=== PATIENT | female | born 1955 ===

== ENCOUNTER 2021-01-27 16:07 | Outpatient (REF) | payer OTHER, SELFPAY ==
--- NOTE | ~2021-01-27 | MM_ITS ---
EXAMINATION: MM SCREENING DIGITAL BREAST TOMOSYNTHESIS, BILATERAL CLINICAL INFORMATION: Screening. Asymptomatic. The lifetime risk of breast cancer based on the Tyrer-Cuzick Model is 5%. COMPARISON: Outside mammography 03/01/2019, 12/05/2017 ([facility]). TECHNIQUE: Digital breast tomosynthesis is performed in both the craniocaudal and mediolateral oblique views along with computer-aided detection (CAD). Synthesized 2D images are generated from the tomosynthesis. FINDINGS: There are scattered areas of fibroglandular density (ACR BI-RADS breast composition Category b). Parenchymal pattern is similar to outside studies. There is no developing density or interval mass or architectural abnormality. No abnormal calcifications. The axilla and skin contours are unremarkable. MM/MM tomosynthesis screening BI IMPRESSION: No mammographic evidence of malignancy. ASSESSMENT: BI-RADS 1: Negative RECOMMENDATION: Routine annual mammography screening. This patient's information was entered into a reminder system with a target due date for their next mammogram.
== END 2021-01-27 16:08 | disposition home or self-care (01) ==
LOC: HO.MAMMO 16:07
PROVIDERS: PCP Internal Medicine; Visit Provider Internal Medicine
DX: Z12.31 Encounter for screening mammogram for malignant neoplasm of breast (principal)
CPT/HCPCS: 77063; 77067

== ENCOUNTER 2022-01-29 16:11 | Outpatient (REF) | payer OTHER, SELFPAY ==
--- NOTE | ~2022-01-29 | MM_ITS ---
EXAMINATION: MM SCREENING DIGITAL BREAST TOMOSYNTHESIS, BILATERAL CLINICAL INFORMATION: Screening. Asymptomatic. The lifetime risk of breast cancer based on the Tyrer-Cuzick Model is 9%. COMPARISON: Mammography: 01/27/2021; outside mammography 03/01/2019, 12/05/2017 ([facility]) TECHNIQUE: Digital breast tomosynthesis is performed in both the craniocaudal and mediolateral oblique views along with computer-aided detection (CAD). Synthesized 2D images are generated from the tomosynthesis. FINDINGS: There are scattered areas of fibroglandular density (ACR BI-RADS breast composition Category b). There are no significant masses, abnormal calcifications, or other abnormalities. Parenchymal pattern is similar to prior studies. There is no developing density or architectural abnormality. The axilla and skin contours are unremarkable. No significant changes. MM/MM tomosynthesis screening BI IMPRESSION: No mammographic evidence of malignancy. ASSESSMENT: BI-RADS 1: Negative RECOMMENDATION: Routine annual mammography screening. This patient's information was entered into a reminder system with a target due date for their next mammogram.
== END 2022-01-29 16:12 | disposition home or self-care (01) ==
LOC: HO.MAMMO 16:11
PROVIDERS: Visit Provider Internal Medicine
DX: Z12.31 Encounter for screening mammogram for malignant neoplasm of breast (principal)
CPT/HCPCS: 77063; 77067

== ENCOUNTER → 2023-03-09 12:08 | Outpatient (REF) | payer OTHER, SELFPAY ==
--- NOTE | ~2023-03-09 | XR_ITS ---
EXAMINATION: XR CHEST CLINICAL INFORMATION: M35.00 - Sjogren syndrome, unspecified COMPARISON: None available. TECHNIQUE: 2 views of the chest were obtained. FINDINGS: There is no airspace consolidation, groundglass opacity, pleural reaction, or effusion. Heart size normal. No vascular congestion. The hilar and mediastinal contours are unremarkable. There are mild multilevel degenerative changes thoracic spine. XR/XR chest 2V IMPRESSION: Unremarkable examination.
--- NOTE | 2023-03-09 12:55 | CA_ITS ---
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 The calculated ejection fraction is 59% by biplane method. - The basal inferior segment is hypokinetic. - The left atrium is severely dilated. - There is mild aortic valve regurgitation. - There is moderate dilatation of the ascending aorta measuring 4.50 cm. - Moderate plaque is seen in the ascending aorta. Findings Left Ventricle Normal left ventricular cavity size. There is mildly increased left ventricular wall thickness. The left ventricular systolic function is normal. The calculated ejection fraction is 59% by biplane method. E/E prime ratio is between 8 and 15 consistent with indeterminate filling pressures. Evidence suggests grade I (mild) diastolic dysfunction. Wall Motion Rest Echo Findings The basal inferior segment is hypokinetic. Right Ventricle Normal right ventricular cavity size and systolic function. Atria The left atrium is severely dilated. The right atrium is normal in size. Aortic Valve There is a normal trileaflet aortic valve. There is no aortic valve stenosis. There is mild aortic valve regurgitation. Mitral Valve The mitral valve appears normal. There is mild mitral annular calcification. There is mild mitral valve regurgitation. There is no mitral valve stenosis. Pulmonic Valve The pulmonic valve is likely normal. Tricuspid Valve There is trace tricuspid valve regurgitation. There is no evidence of pulmonary hypertension. Great Vessels There is moderate dilatation of the ascending aorta measuring 4.50 cm. Moderate plaque is seen in the ascending aorta. Venous The inferior vena cava is normal in size and collapses greater than 50% with inspiration. Pericardium/Pleural There is no evidence of pericardial effusion. Prior Study Comparison Changes noted compared to prior study dated: 09/21/2005. See comments on ascending aorta. Wall motion abnormality mentioned before. Measurements 2D Linear Measurements IVSd: 1.24 0.6-0.9/0.6-1.0 cm LVIDd: 5.69 3.9-5.3/4.2-5.9 cm LVIDd Index: 3.27 2.4-3.2/2.2-3.1 cm/m2 LVIDs: 3.57 2.0-3.6 cm LVPWd: 0.80 0.7-1.1 cm LA Diam: 4.80 2.7-3.8/3.0-4.0 cm LAIDs Index: 2.76 1.5-2.3 cm/m2 LV Mass: 288.96 67-162/88-224 g LV Mass Index: 166.07 43-95/49-115 g/m2 LVOT Diam: 2.30 3.0+(-)1.3 cm 2D Systolic Function EF 4C: 58.90 >55% EF 2C: 58.00 >55% EF BiP: 58.80 >55% Mitral Valve MV Pk E: 0.54 MV PK A: 0.72 MV Decel Time: 281.00 E/A: 0.70 E'Lateral: 6.85 E'Medial: 3.59 E/E' Med: 14.90 E/E' Lat: 7.80 PHT: 82.00 MVA PHT: 2.68 Decel Garden: 1.90 Aortic Valve AoV Pk Alonzo: 1.77 AoV Mn Alonzo: 1.12 AoV VTI: 0.41 AoV Pk Grad: 13.00 Aov Mn Grad: 6.00 CITLALLI Cont.VTI: 2.68 AI Pk Alonzo: 4.07 AI Garden: 2.24 LVOT LVOT Pk Alonzo: 1.11 LVOT Mn Alonzo: 0.68 LVOT VTI: 0.26 LVOT Pk Grad: 5.00 LVOT Mn Grad: 2.00 LVOT Diam: 2.30 LVOT Area: 4.15 Diastolic Function MV Pk E: 0.54 MV Pk A: 0.72 E/A: 0.70 E'Medial: 3.59 E/E' Med: 14.90 E' Laterial: 6.85 E/E' Lat: 7.80 Right Ventricle TAPSE (mm): 23.40 TVS' Alonzo: 13.80 Tricuspid Valve TR Pk Alonzo: 2.76 TR Pk Grad: 30.00 RA Press: 3.00 RVSP: 33.00 Great Vessels Aorta Sinus of Valsalva: 3.63 2.0-3.[address] Ridge: 2.79 1.7-3.4 cm Ao Asc: 4.50 2.1-3.4 cm Updated in Other Vendor System with Status of Final Cory Mariscal MD electronically signed on 03/11/2023 11:33:12 AM with status of Final
== END ==
LOC: HO.CARD 12:08
PROVIDERS: PCP Internal Medicine; Visit Provider Student in an Organized Health Care Education/Training Program
DX: R01.1 Cardiac murmur, unspecified (principal); M35.00 Sjogren syndrome, unspecified
CPT/HCPCS: 71046; 93306

== ENCOUNTER 2023-06-02 14:16 | Outpatient (AMB) | payer OTHER, SELFPAY ==
[2023-06-02 14:17] VITALS: BP 126/76; PULSE 73; BMI 34.9
--- NOTE | 2023-06-02 14:17 | MHC.OFFVIS ---
Intake Vital Signs 06/02/23 14:17 Height 5 ft Weight 178 lb 9.191 oz BMI 34.9 BP 126/76 Blood Pressure Location Lt brachial Position Sitting Pulse 73 Intake Visit Reasons: MAGNETIZER/Miguel A/Thoracic aortic ectasia Intake Note: New patient Dr Grady dx thoracic aortic ectasia c/o tachycardia but feeling ok Oncology Coordinator Required: No Physical Chemistry Professor: Physical Chemistry Professor Present Accompanied by: Spouse Allergies acetaminophen [From Percocet] Adverse Reaction (Verified 08/17/22 13:44) Hallucinations oxycodone [From Percocet] Adverse Reaction (Verified 08/17/22 13:44) Hallucinations Medication List - Last Reconciled 06/02/23 by Thierno Navarro MD acetaminophen ER (Tylenol Arthritis Pain) 650 mg PO BEDTIME albuterol sulfate 90 mcg/actuation (ProAir HFA) 90 mcg inhalation NEEDED hydroxychloroquine 200 mg PO BID levothyroxine 100 mcg PO DAILY losartan 50 mg PO DAILY metoprolol succinate ER 200 mg PO DAILY omeprazole 20 mg PO DAILY PRN pilocarpine HCl 5 mg PO TID pravastatin 20 mg PO BEDTIME HPI HPI Comments History of Present Illness Details Thank you for referring Nicky in cardiology consultation today for recently noted ascending aortic aneurysm at 4.5 cm. The echocardiogram was performed because of a murmur noted on routine exam and subsequently this shows mild aortic regurgitation moderate ascending aortic aneurysm at 4.5 cm. Patient was not aware of it but very anxious about it. Echocardiogram also showed possible inferior wall motion abnormality with normal LV systolic function. Patient referred here for further evaluation. She has prior history of hypertension for many years, palpitations, unclear etiology, Sjogren's syndrome, hyperlipidemia. Patient does not get any symptoms exertional chest pain or shortness of breath. She denies any prolonged palpitations since her metoprolol was increased to 200 mg daily, she has symptoms about once or twice a year where she briefly feels heart racing. Never been diagnosed with atrial fibrillation the past. She has no symptoms of orthopnea, PND, leg edema. She has no lightheadedness, syncope. PENDING SALE TO [facility] Medical History Alopecia areata Anemia Asthma Dermatitis Eczema High cholesterol Hypertension Hypothyroid Microhematuria Sleep apnea Surgical History H/O varicose vein stripping LAP-BAND surgery status Family History Mother Diabetes Paternal Aunt Diabetes Breast cancer Uterine cancer Father High blood pressure Social History Household Members: [facility] Are you a primary child care sitter to a significant other at home: No Do you presently have visiting nurse or other home services: No Alcohol intake: current Alcohol intake frequency: 0-2 drinks per day Alcohol type: wine Patient Tobacco Use Status: Never used Tobacco service: No Current occupational status: retired 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 Review of Systems Const Denies chills, Denies daytime sleepiness, Denies fatigue, Denies fever(s), Denies frequent falls, Denies poor appetite, Denies snoring, Denies stops breathing during sleep, Denies weakness, Denies weight gain and Denies weight loss Eyes Denies loss of vision ENT Denies dizziness and Denies hearing loss Card Denies chest pain, Denies claudication, Denies leg edema, Denies lightheadedness, Denies palpitations, Denies dyspnea, Denies dyspnea on exertion and Denies orthopnea Resp Denies cough, Denies excessive phlegm production, Denies dyspnea, Denies dyspnea on exertion, Denies snoring and Denies wheezing GI Denies abdominal pain, Denies hematochezia, Denies change in bowel habits, Denies nausea and Denies vomiting Denies urinary frequency and Denies dysuria Musc Denies arthralgias, Denies muscle weakness, Denies numbness and Denies other (frequent falls) Skin/Breast Denies nail changes and Denies rash Neuro Denies Abnormal speech present, Denies dizziness, Denies frequent falls, Denies loss of vision, Denies memory loss, Denies numbness and Denies weakness Psych Denies depression and Denies memory loss Endo Denies fatigue and Denies palpitations Aaron/Lymph Reports easy bruising and Reports other (anemia) Aller/Immun Denies wheezing Physical Exam Vital Signs: Last Vital Signs Pulse 73 06/02/23 14:17 BP 126/76 06/02/23 14:17 BMI result Body Mass Index 34.9 Const General: cooperative, comfortable, no acute distress, alert and awake Nutritional Appearance: obese Orientation/consciousness: patient oriented x3 Limitations: no limitations HEENT Head: Yes normocephalic and Yes atraumatic Neck Neck: Yes trachea midline, Yes supple and Yes no JVD Resp Effort & Inspection: normal respiratory effort Auscultation: clear to auscultation bilaterally Cardio Jugular venous distension: no JVD Palpation: normal PMI Rate: regular rate Rhythm: regular rhythm Heart sounds: S1 normal heart sound present, S2 normal heart sound present, no click, no gallops and Murmur heart sound present systolic early GI Auscultation: normal bowel sounds Skin General skin exam: no rashes or lesions noted Neuro General: patient oriented x3 and no focal motor deficits Speech: No Abnormal speech present Extrem General: Yes no clubbing, cyanosis or edema Office Procedures EKG Details: EKG shows normal sinus rhythm nonspecific ST changes [id number], Complete Assessment & Plan Assessment & Plan (1) Abnormal echocardiogram: Code(s): R93.1 - Abnormal findings on diagnostic imaging of heart and coronary circulation Plan: Patient is abnormal echocardiogram suggestive ascending aortic atherosclerosis as well as possible inferior wall motion abnormality. She has multiple risk factors for obstructive coronary artery disease. Given the wall motion of did echocardiogram prognostically significant CAD needs to be ruled out and she does not have any clear exertional symptoms but could have silent myocardial ischemia. This will need to be treated aggressively. Suggest exercise myocardial perfusion imaging in near future further treatment based on the findings of the stress test. (2) Ascending aorta dilatation: Code(s): I77.810 - Thoracic aortic ectasia Plan: Moderate ascending aortic aneurysm without any clinical history or family history. Most likely atherosclerotic in nature. She has multiple risk factors for the same. Continue aggressive blood pressure control. Blood pressure is generally well control, continue current metoprolol as well as losartan therapy. Advised to monitor blood pressure at home maintain a log. She is on low intensity statin therapy and have recommended to follow-up lipid panel near future most likely switch her to high-intensity statin therapy based on her baseline LDL level on current pravastatin therapy. Management of ascending aortic aneurysm was discussed. Will follow-up limited echocardiogram 6 months time. If that is rapid increase will refer to Cardiothoracic surgery for repair of ascending aortic aneurysm otherwise follow-up annually after that the size of 5.5 cm. Risk of acute aortic syndrome was discussed. Advised to avoid sudden isometric physical exercise. Will follow up in the clinic in 6 months time, sooner p.r.n.. Thank you for allowing me to partake in her care Orders: Orders CA echo limited 4 Months I42.9 - Cardiomyopathy, unspecified, I77.810 - Thoracic aortic ectasia CA stress test Today R93.1 - Abnormal findings on diagnostic imaging of heart and coronary circulation NM cardiolite stress test 2 Weeks R07.9 - Chest pain, unspecified, R93.1 - Abnormal findings on diagnostic imaging of heart and coronary circulation Lipid Panel Today I77.810 - Thoracic aortic ectasia Medications: Changed From pilocarpine HCl use as needed for dryness 5 mg PO TID 90 tabs 0RF To pilocarpine HCl use as needed for dryness 5 mg PO TID Coding Level of Care Code New Pt Level 4 (33820) Diagnoses Abnormal echocardiogram R93.1 Ascending aorta dilatation I77.810 CPT Codes EKG - CPT: 49883-[id number], Complete ([id number])
== END 2023-06-02 14:43 | disposition home or self-care (01) ==
PROVIDERS: PCP Internal Medicine; Referring Provider Student in an Organized Health Care Education/Training Program; Visit Provider Internal Medicine Cardiovascular Disease
DX: R93.1 Abnormal findings on diagnostic imaging of heart and coronary circulation (principal); I77.810 Thoracic aortic ectasia
CPT/HCPCS: 93010; 99204

== ENCOUNTER → 2023-06-02 14:16 | Outpatient (BNVA) | payer OTHER, SELFPAY | PROVIDERS: PCP Internal Medicine; Referring Provider Student in an Organized Health Care Education/Training Program; Visit Provider Internal Medicine Cardiovascular Disease | DX: I42.9 Cardiomyopathy, unspecified (principal); I77.810 Thoracic aortic ectasia; R07.9 Chest pain, unspecified; R93.1 Abnormal findings on diagnostic imaging of heart and coronary circulation | CPT/HCPCS: 93005 ==

== ENCOUNTER 2023-06-20 12:02 | Outpatient (REF) | payer OTHER, SELFPAY ==
[2023-06-20 12:42] LABS: MANUAL DIFF FLAG NO
[2023-06-20 13:10] LABS: Basophils Absolute Auto 0.1 X10*3/uL (0.0-0.2); Basophils Percent Auto 2.4 % (0-2); Eosinophils Absolute Auto 0.2 X10*3/uL (0.0-0.4); Eosinophils Percent Auto 6.5 % (0-4); Hematocrit 34.8 % (37.0-47.0); Hemoglobin 11.6 g/dl (12.0-16.0); Lymphocytes Absolute Auto 0.6 X10*3/uL (1.2-4.9); Mean Corpuscular HGB Conc 33.3 g/dl (31.0-35.0); Mean Corpuscular Hemoglobin 32.5 pg (27.0-33.0); Mean Corpuscular Volume 97.5 fL (80.0-98.0); Mean Platelet Volume 10.5 fL (9.4-12.3); Monocytes Absolute Auto 0.4 X10*3/uL (0.1-1.2); Monocytes Percent Auto 12.5 % (2-11); Neutrophils Percent Auto 59.6 % (45-73); Platelet Count 249 X10*3/uL (160-400); Red Blood Count 3.57 X10*6/uL (4.20-5.50); Red Cell Distribution Width 12.7 % (11.0-16.0); White Blood Count 3.4 X10*3/uL (4.8-10.8)
[2023-06-20 13:38] LABS: C Reactive Protein 0.13 mg/dL (< or = 0.50); Uric Acid 6.5 mg/dL (2.4-5.7)
[2023-06-20 14:06] LABS: HBc Num1 0.12 S/CO (0.00-0.79); HBsAGNum1 0.33 S/CO (0.00-0.99); Hepatitis A Antibody IgM 0.26 Index (0-0.79); Hepatitis B Core Antibody Nonreactive (Nonreactive); Hepatitis B Surface Antigen Negative (Negative); ~HepC Num1 0.17 S/CO (0.00-0.79); ~Hepatitis A Antibody IgM Nonreactive (Nonreactive); ~Hepatitis B Surface Antibody REACTIVE (Nonreactive); ~Hepatitis C Antibody Nonreactive (Nonreactive)
[2023-06-20 15:10] LABS: Erythrocyte Sedimentation Rate 34 MM/HR (0-20)
[2023-06-20 15:12] LABS: Appearance Urine Clear; Color Urine Yellow; Glucose Urine UA Negative (Negative); Leukocyte Esterase Urine Small (1+) (Negative); Nitrite Urine Negative (Negative); UMIC TRIGGER UA YES; Urine Blood Negative (Negative); Urine Ketones Negative (Negative); Urine Protein Negative (Neg-Trace)
[2023-06-20 15:19] LABS: Bacteria Urine None Seen (None Seen); Hyaline Casts Urine 0-2 /LPF (0-2); RBC Urine 0-2 /HPF (0-2); Squamous Epithelial Cell Urine 0-2 /HPF (0-2); WBC Urine 0-5 /HPF (0-5)
[2023-06-20 15:37] LABS: Creatinine Urine 71.14 mg/dL; Total Protein Urine Random < 7 mg/dL (<12)
[2023-06-21 13:13] LABS: Complement C3 122 mg/dL (83-193)
[2023-06-22 23:19] LABS: Anti DNA DS Antibody 2 IU/mL; SM/Ribonucleoprotein Ab <1.0 NEG AI (<1.0 NEG); Smith Protein <1.0 NEG AI (<1.0 NEG)
[2023-06-23 15:48] LABS: Anti Nuclear Antibody Screen POSITIVE (NEGATIVE)
[2023-06-29 11:35] LABS: Cryoglobulin, Qual NONE DETECTED
== END 2023-06-20 12:03 | disposition home or self-care (01) ==
LOC: HO.10HDL 12:02
PROVIDERS: Visit Provider Student in an Organized Health Care Education/Training Program
DX: Z11.59 Encounter for screening for other viral diseases (principal); M35.00 Sjogren syndrome, unspecified; Z72.89 Other problems related to lifestyle
CPT/HCPCS: 36415; 81001; 82550; 82595; 84156; 84550; 85025; 85652; 86038; 86039; 86140; 86160; 86225; 86235; 86704; 86706; 86709; 86803; 87340

== ENCOUNTER 2023-06-24 15:20 | Outpatient (AMB) | payer OTHER, SELFPAY ==
--- NOTE | 2023-06-24 15:23 | A.OFFVIS_ITS ---
Intake Vital Signs 06/24/23 15:24 Height 5 ft Weight 179 lb 10.828 oz BMI 35.1 BP 144/86 H Blood Pressure Location Rt brachial Position Sitting Pulse 66 Pulse Source Pulse Oximeter Temp 97.8 F Pulse Oximetry (%) 97 Intake Visit Reasons: FU Sjogren & labs Intake Note: Pt seen today for Sjogren's follow up and test results. Mess Attendant Required: No Accompanied by: Significant Other Allergies acetaminophen [From Percocet] Adverse Reaction (Verified 06/24/23 15:33) Hallucinations oxycodone [From Percocet] Adverse Reaction (Verified 06/24/23 15:33) Hallucinations Medication List - Last Reconciled 06/24/23 by Rochelle Grady MD acetaminophen ER (Tylenol Arthritis Pain) 650 mg PO BEDTIME albuterol sulfate 90 mcg/actuation (ProAir HFA) 90 mcg inhalation NEEDED levothyroxine 100 mcg PO DAILY losartan 50 mg PO DAILY metoprolol succinate ER 200 mg PO DAILY omeprazole 20 mg PO DAILY PRN pravastatin 20 mg PO BEDTIME HPI HPI Comments History of Present Illness Details 68-year-old female with Sjogren's returns for follow-up. Patient stated that she recently went for an eye procedure. She was told that she had blood in the back of her eye she had a surgery procedure. She mentioned that she took hydroxychloroquine for a few months after I saw her initially last year. Then she was out of it for many months, she restarted it about a week ago. Stated that when she takes hydroxychloroquine the joint pain especially in her knees and shoulders improved. She continues to get intermittent dry eyes, she uses artificial tears 2 to 3 times a week. She was evaluated by Cardiology and a stress test was ordered Initial history: This is a 67-year-old female with a past medical history of hypothyroidism, alopecia areata, hypertension, dyslipidemia, mild asthma who presents for evaluation of Sjogren's. Patient has had dry eyes and dry mouth for 3-4 years. Dry mouth is worse at night, she drinks plenty of water. She denies any history of frequent dental infections. She feels the food is dry when she eats and she has to drink plenty of water but food never got stuck in her throat or chest. She also has been having dry eyes for years. She has skin dryness too. In [place] she saw a reproduction artist who diagnosed her with Sjogren's and was started on hydroxychloroquine which helped her bilateral knee pain. She took it for 3 months, she is not taking it currently. She has bilateral shoulder pain especially when she sleeps on her sides. She has intermittent shortness of breath, usually when she is resting. Patient has 15 steps of stairs at home and she can climb the stairs with no shortness of breath. Can walk on level ground indefinitely. Has bilateral knee pain with walking improved with Tylenol. [facility] Medical History (Updated 06/24/23 @ 16:14 by Rochelle Grady MD) Alopecia areata Anemia Asthma Dermatitis Eczema High cholesterol Hypertension Hypothyroid Microhematuria Sleep apnea Surgical History H/O varicose vein stripping LAP-BAND surgery status Family History Mother Diabetes Paternal Aunt Diabetes Breast cancer Uterine cancer Father High blood pressure Social History Household Members: [facility] Are you a primary ocular care technician to a significant other at home: No Do you presently have visiting nurse or other home services: No Alcohol intake: current Alcohol intake frequency: 0-2 drinks per day Alcohol type: wine Patient Tobacco Use Status: Never used Tobacco service: No Current occupational status: retired 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 Review of Systems Const All systems reviewed & are unremarkable except as noted in HPI and below Denies weight loss Eyes Reports dry eyes ENT Reports dry mouth Physical Exam Vital Signs: Last Vital Signs Temp 97.8 F 06/24/23 15:24 Pulse 66 06/24/23 15:24 BP 144/86 H 06/24/23 15:24 Pulse Ox 97 06/24/23 15:24 BMI result Body Mass Index 35.1 Const General: cooperative, healthy appearing, comfortable and no acute distress Nutritional Appearance: average body habitus and well nourished Orientation/consciousness: patient oriented x3 Limitations: no limitations HEENT Mouth: moist mucous membranes Resp Effort & Inspection: normal respiratory effort and able to speak in complete sentences Auscultation: clear to auscultation bilaterally Cardio Rate: regular rate Rhythm: regular rhythm Heart sounds: S1 normal heart sound present, S2 normal heart sound present and Murmur heart sound present systolic (aortic area) GI Inspection: No distended Palpation (GI): Soft to palpation and nontender Back/Spine/Pelvis Other: Mildly kyphotic Neuro General: patient oriented x3 Extrem Other: No synovitis, normal range of motion of her hands shoulders and elbows Normal nailfold capillaroscopy Results Reviewed Results Reviewed: Labs from 01/2022?in [place] CARLY positive 1-160 nuclear granular pattern? Anti TPO 34.4 (< 34.0) Anti Ro 52 2876? Anti Ro 60 2749 Anti SS B above 259 Ibrahim/TUBULAR PRODUCTS FABRICATOR/Scl 70/Brittnee-1/centromere/Ribosomal P/dsDNA all negative Rheumatoid factor 246 (<14) C4/C3 normal Sed rate 51 Assessment & Plan Assessment & Plan (1) Sjogren's syndrome: Code(s): M35.00 - Sjogren syndrome, unspecified Qualifiers: Sjogren organ or system involvement: keratoconjunctivitis Qualified Code(s): M35.01 - Sjogren syndrome with keratoconjunctivitis Plan: This is a 67-year-old female with a past medical history of hypothyroidism, hypertension, dyslipidemia, alopecia areata who presents for evaluation of Sjogren's syndrome. She was recently diagnosed by reproduction artist in [facility]. She has Sjogren syndrome (CARLY 1-160, anti Ro 52 & anti Ro 60 positive in high titers, positive RF) dry eyes and dry mouth, arthralgias. Her bilateral knee arthralgias improved with hydroxychloroquine. Will DC hydroxychloroquine as patient stated that she had a recent eye procedure. Details not available to me. Hydroxychloroquine might be relatively contraindicated if patient has macular degeneration. Advised patient to call her combatant swimmer to send us records. Continue management approaches for sicca symptoms including: -continue Biotene mouthwash or Biotene spray for dry mouth -s continue to use artificial tears as needed for dry eyes -consider a humidifier If dry eyes do not improve then consult with an combatant swimmer PFTs were done to screen for ILD and it was unremarkable (2) Long-term use of hydroxychloroquine: Code(s): Z79.899 - Other chcf (current) drug therapy Plan: As mentioned above. Discontinue hydroxychloroquine. Patient will reach out to her combatant swimmer and send us records (3) Murmur, cardiac: Code(s): R01.1 - Cardiac murmur, unspecified Plan: Murmur was hold on heart auscultation has visit. 2D echo showed mild basal hypokinesis and a small ascending aortic aneurysm. Patient was evaluated by Cardiology and scheduled for a stress test (4) Osteopenia: Code(s): M85.80 - Other specified disorders of bone density and structure, unspecified site Qualifiers: Osteopenia location: multiple sites Qualified Code(s): M85.89 - Other specified disorders of bone density and structure, multiple sites Plan: FRAX 2022 showed osteopenia with a low FRAX score. No need for antiresorptive therapy. Can repeat in 2-3 years Plan I spent 29 minutes reviewing patient's chart, evaluating patient, counseling patient and documenting in the chart Coding Level of Care Code Est Pt Level 4 (29897) Diagnoses Sjogren's syndrome M35.01 Sjogren organ or system involvement: keratoconjunctivitis Long-term use of hydroxychloroquine Z79.899 Murmur, cardiac R01.1 Osteopenia M85.89 Osteopenia location: multiple sites
[2023-06-24 15:24] VITALS: BP 144/86; PULSE 66; TEMP 36.6; O2SAT 97; BMI 35.1
== END 2023-06-24 16:07 | disposition home or self-care (01) ==
PROVIDERS: PCP Internal Medicine; Visit Provider Student in an Organized Health Care Education/Training Program
DX: M35.01 Sjogren syndrome with keratoconjunctivitis (principal); Z79.899 Other long term (current) drug therapy; R01.1 Cardiac murmur, unspecified; M85.89 Other specified disorders of bone density and structure, multiple sites
CPT/HCPCS: 99214

== ENCOUNTER → 2023-06-24 15:20 | Outpatient (BNVA) | payer OTHER, SELFPAY | PROVIDERS: PCP Internal Medicine; Visit Provider Student in an Organized Health Care Education/Training Program ==

== ENCOUNTER → 2023-11-09 07:48 | Outpatient (REF) | payer MEDICARE, SELFPAY ==
--- NOTE | ~2023-11-09 | NM_ITS ---
Exercise Myocardial perfusion study Indication: Chest pain to evaluate for myocardial ischemia Technique: The patient was brought in for an exercise perfusion study on 11/09/2023. Patient performed exercise as per Spencer protocol and was injected 25 mCi of sestamibi was given intravenously one target HR was achieved. Images were obtained using the SPECT gamma camera interlaced with the gating device. Images were obtained in supine position. Resting perfusion study was performed on 11/14/2023. Patient was administered 25 mCi of sestamibi intravenously at rest. Images were then obtained in supine position. Images obtained with and without CT attenuation. Total DLP 111 mGy-cm Images were processed with the software and compared side to side in short axis, horizontal long axis and vertical long axis views. Findings: The stress perfusion study showed non attenuated images show mildly reduced uptake in the distal anterior and apical wall of the LV myocardium with mildly reduced uptake in the basal lateral wall of the LV myocardium. Attenuation corrected images also show mild thinning and reduced uptake in the distal anterior and apical wall of the LV myocardium.. The gated study shows normal LV systolic function with calculated LVEF of 53%. LV cavity is mildly dilated in size. The gated study shows normal systolic wall thickening and contraction of all segments. There is no transient ischemic dilation. Resting study shows improved uptake in the distal anterior and apical rowley of LV myocardium both attenuated as well as non attenuated images. Gating at rest reveals normal systolic wall motion with ejection fraction at 57%. The findings are consistent with mild intensity reversible defect in the distal anterior and apical wall of the LV myocardium suggestive of ischemia in mid to distal LAD territory. NM/NM cardiolite stress test Impression: 1. Mild intensity ischemia in mid to distal LAD territory 2. Gated LVEF is 53% with stress and 57% with rest 3. Transient ischemic dilatation not present Stress EKG is not suggestive of ischemia
--- NOTE | 2023-11-09 07:50 | CA_ITS ---
Acquisition Time: 2023-11-09 08:07:55 Total Exercise Time: 00:05:48 Test Indications: ABN ECHO Medications: ALBUTEROL LEVOTHYROXINE LOSARTAN METOPROLOL PILOCAROINE PRAVASTATIN Protocol: SPENCER Max HR: 126 BPM 82% of Pred: 152 BPM Max BP: 166/080 mmHG Max Work Load: 7.8 METS Exercise stress test exercise 5 min 48 sec of Spencer protocol 82% MPHR (stage 2, 3 manually increased due to coming back on treadmil) with 30 sec of marching in place to maintain heart rate due to fatigue, with moderate SOB, no chest discomfort, with isolated PVCs, PACs, lauren of SVT, with normotensive response to exercise, with T wave inversion in aVL and V2. Nuclear images pending. Test reviewed with Dr. Navarro. Referred By: Thierno Navarro Overread By: Yesika Silveira
== END ==
LOC: HO.CARD 07:48
PROVIDERS: PCP Internal Medicine; Visit Provider Internal Medicine Cardiovascular Disease
DX: R07.9 Chest pain, unspecified (principal); R93.1 Abnormal findings on diagnostic imaging of heart and coronary circulation
CPT/HCPCS: 78452; 93017; A9500

== ENCOUNTER → 2023-11-09 07:50 | Outpatient (BNV) | payer MEDICARE, SELFPAY | PROVIDERS: PCP Internal Medicine; Visit Provider Nurse Practitioner | DX: I25.10 Atherosclerotic heart disease of native coronary artery without angina pectoris (principal) | CPT/HCPCS: 78452; 93016; 93018 ==

== ENCOUNTER → 2023-11-17 08:16 | Outpatient (REF) | payer MEDICARE, SELFPAY ==
--- NOTE | 2023-11-17 08:19 | CA_ITS ---
Transthoracic Echocardiogram Patient (Last, First, Middle): Nicky Fritz, Gender: Female Date of : 1955 Age: 68 Procedure Date: 11/17/2023 Procedure Type: Transthoracic Echocardiogram Location: OP Height: 152.4 cm Weight: 80.74 kg BSA: 1.78 m2 Heart Rate: 53 bpm BP: 160 / 80 mmHg Regional Director: [id number] Referring MD: Thierno Navarro MD Symptoms: I42.9 - Cardiomyopathy, unspecified Study Quality: Fair/Limited ECG Rhythm: Bradycardia Conclusions: - The aortic annulus, sinuses of valsalva, aortic arch, and abdominal aorta are normal in size. - There is moderate dilatation of the ascending aorta measuring 4.60 cm. Findings Left Ventricle The left ventricular systolic function is normal. The calculated ejection fraction is 62% by biplane method. Great Vessels The aortic annulus, sinuses of valsalva, aortic arch, and abdominal aorta are normal in size. There is moderate dilatation of the ascending aorta measuring 4.60 cm. Venous The inferior vena cava is normal in size and collapses greater than 50% with inspiration. Prior Study Comparison No significant change compared to prior study dated: 03/09/2023. Measurements 2D Linear Measurements IVSd: 1.07 0.6-0.9/0.6-1.0 cm LVIDd: 5.80 3.9-5.3/4.2-5.9 cm LVIDd Index: 3.26 2.4-3.2/2.2-3.1 cm/m2 LVIDs: 4.37 2.0-3.6 cm LVPWd: 0.82 0.7-1.1 cm LV Mass: 270.21 67-162/88-224 g LV Mass Index: 151.81 43-95/49-115 g/m2 LVOT Diam: 2.30 3.0+(-)1.3 cm 2D Systolic Function EF 4C: 62.50 >55% EF 2C: 61.90 >55% EF BiP: 61.70 >55% LVOT LVOT Pk Alonzo: 1.01 LVOT Mn Alonzo: 0.62 LVOT VTI: 0.25 LVOT Pk Grad: 4.00 LVOT Mn Grad: 2.00 LVOT Diam: 2.30 LVOT Area: 4.15 Great Vessels Aorta Sinus of Valsalva: 3.60 2.0-3.5 cm Ao Asc: 4.60 2.1-3.4 cm Ao Arch: 2.90 Updated in Other Vendor System with Status of Final Cory Mariscal MD electronically signed on 11/19/2023 1:42:26 PM with status of Final
== END ==
LOC: HO.CARD 08:16
PROVIDERS: PCP Internal Medicine; Visit Provider Internal Medicine Cardiovascular Disease
DX: I42.9 Cardiomyopathy, unspecified (principal); I77.810 Thoracic aortic ectasia
CPT/HCPCS: 93308

== ENCOUNTER → 2023-11-17 08:19 | Outpatient (BNV) | payer MEDICARE, SELFPAY | PROVIDERS: PCP Internal Medicine; Visit Provider Internal Medicine | DX: I42.9 Cardiomyopathy, unspecified (principal) | CPT/HCPCS: 93308 ==

== ENCOUNTER 2023-12-14 09:13 | Outpatient (AMB) | payer OTHER, SELFPAY ==
--- NOTE | 2023-12-14 09:16 | A.OFFVIS_ITS ---
Intake Vital Signs 12/14/23 09:17 Height 5 ft Weight 174 lb 2.643 oz BMI 34.0 BP 130/72 Blood Pressure Location Lt brachial Position Sitting Pulse 63 Intake Visit Reasons: f/u after stress test/echo Intake Note: Follow-up after stress and echo feeling good Sales Program Coordinator Required: No Deicer Repairer Pneumatic: Deicer Repairer Pneumatic Present Accompanied by: Spouse Allergies acetaminophen [From Percocet] Adverse Reaction (Verified 06/24/23 15:33) Hallucinations oxycodone [From Percocet] Adverse Reaction (Verified 06/24/23 15:33) Hallucinations Medication List - Last Reconciled 12/14/23 by Thierno Navarro MD acetaminophen ER (Tylenol Arthritis Pain) 650 mg PO BEDTIME albuterol sulfate 90 mcg/actuation (ProAir HFA) 90 mcg inhalation NEEDED hydroxychloroquine 200 mg PO BID levothyroxine 100 mcg PO DAILY losartan 100 mg PO DAILY metoprolol succinate ER 100 mg PO BID omeprazole 20 mg PO DAILY PRN rosuvastatin (Crestor) 10 mg PO DAILY HPI HPI Comments History of Present Illness Details Nicky comes for follow-up. Her medications were recently changed with increasing losartan does and splitting of her metoprolol dose. Crestor was added in place of mild statin therapy in the past. Her recent echocardiogram shows moderately dilated ascending aorta at 4.6 cm, not significantly changed compared to the past. Her stress test is suggestive of ischemia in the mid to distal LAD territory. She continues to have no symptoms although she says she does not exercise much. She denies any new chest pain or shortness of breath. Denies any palpitations, lightheadedness. Takes her medications regularly. [facility] Medical History CRVO (central retinal vein occlusion) Dermatitis Alopecia areata Eczema Hypothyroid High cholesterol Anemia Microhematuria Sleep apnea Asthma Hypertension Surgical History H/O varicose vein stripping LAP-BAND surgery status Family History Mother Diabetes Paternal Aunt Diabetes Breast cancer Uterine cancer Father High blood pressure Social History Household Members: Spouse Housing: Condominium Are you a primary healthcare insurance sales agent to a significant other at home: No Do you presently have visiting nurse or other home services: No Alcohol intake: current Alcohol intake frequency: 0-2 drinks per day Alcohol type: wine Patient Tobacco Use Status: Never used Tobacco service: No Current occupational status: retired 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 occupation: 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 [employer] CAP[employer] Review of Systems Const Denies chills, Denies fatigue, Denies fever(s), Denies frequent falls, Denies weakness, Denies weight gain and Denies weight loss ENT Denies dizziness Card Denies chest pain, Denies leg edema, Denies lightheadedness, Denies palpitations, Denies dyspnea, Denies dyspnea on exertion, Denies orthopnea and Denies other (loss of consciousness) Resp Denies cough, Denies dyspnea and Denies dyspnea on exertion GI Denies hematochezia and Denies change in stool character Musc Denies abnormal gait, Denies muscle weakness, Denies numbness, Denies radiating pain into limb and Denies tingling Neuro Denies Abnormal speech present, Denies abnormal gait, Denies dizziness, Denies frequent falls, Denies numbness, Denies tingling and Denies weakness Endo Denies fatigue and Denies palpitations Physical Exam Vital Signs: Last Vital Signs Pulse 63 12/14/23 09:17 BP 130/72 12/14/23 09:17 BMI result Body Mass Index 34.0 Const General: cooperative, comfortable, no acute distress, alert and awake Nutritional Appearance: obese Orientation/consciousness: patient oriented x3 Limitations: no limitations HEENT Head: Yes normocephalic and Yes atraumatic Neck Neck: Yes trachea midline, Yes supple and Yes no JVD Resp Effort & Inspection: normal respiratory effort Auscultation: clear to auscultation bilaterally Cardio Jugular venous distension: no JVD Palpation: normal PMI Rate: regular rate Rhythm: regular rhythm Heart sounds: S1 normal heart sound present, S2 normal heart sound present, no click, no gallops and Murmur heart sound present systolic early GI Auscultation: normal bowel sounds Skin General skin exam: no rashes or lesions noted Neuro General: patient oriented x3 and no focal motor deficits Speech: No Abnormal speech present Extrem General: Yes no clubbing, cyanosis or edema Assessment & Plan Assessment & Plan (1) Ascending aorta dilatation: Code(s): I77.810 - Thoracic aortic ectasia Plan: Ascending aortic aneurysm at 4.6 cm, moderately dilated. Continue aggressive medical therapy including aggressive blood pressure control. Blood pressure is currently well optimized. Importance of good blood pressure control was discussed advised to monitor blood pressure at home maintain a log. Low-salt diet was discussed. Avoid sudden strenuous isometric exercise. Continue statin therapy as it appears that aneurysmal process is most likely atherosclerotic. Target goal LDL less than 70 mg/dL. Continue low-dose aspirin therapy. Echocardiogram in 1 year's time. (2) CAD (coronary artery disease): Code(s): I25.10 - Atherosclerotic heart disease of [place] coronary artery without angina pectoris Plan: Abnormal stress test suggestive of LAD territory ischemia. Unsure whether this is proximal LAD or mid to distal LAD which would determine treatment options. Would suggest her to undergo coronary CTA to further evaluate for presence of coronary artery disease in prognostically significant territories. This will be scheduled in near future. Continue low-dose aspirin therapy and aggressive vascular risk factor modification above. Currently on Crestor 10 mg therapy, follow-up lipid panel in near future. Target goal LDL less than 70 mg/dL. Will follow up in the clinic after coronary CTA. Thank you for allowing me to partake in her care Orders: Orders Basic Metabolic Panel Today I25.10 - Atherosclerotic heart disease of [place] coronary artery without angina pectoris Lipid Panel Today I25.10 - Atherosclerotic heart disease of [place] coronary artery without angina pectoris CT Cardiac Coronary Angio 1 Week I25.10 - Atherosclerotic heart disease of [place] coronary artery without angina pectoris Coding Level of Care Code Est Pt Level 4 (13654) Diagnoses Ascending aorta dilatation I77.810 CAD (coronary artery disease) I25.10
[2023-12-14 09:17] VITALS: BP 130/72; PULSE 63; BMI 34.0
== END 2023-12-14 09:43 | disposition home or self-care (01) ==
PROVIDERS: PCP Internal Medicine; Visit Provider Internal Medicine Cardiovascular Disease
DX: I77.810 Thoracic aortic ectasia (principal); I25.10 Atherosclerotic heart disease of native coronary artery without angina pectoris
CPT/HCPCS: 99214

== ENCOUNTER → 2023-12-14 09:13 | Outpatient (BNVA) | payer OTHER, SELFPAY | PROVIDERS: PCP Internal Medicine; Visit Provider Internal Medicine Cardiovascular Disease ==

== ENCOUNTER 2024-04-20 11:27 | Outpatient (AMB) | payer OTHER, SELFPAY ==
[2024-04-20 11:47] VITALS: BP 122/64; PULSE 61; O2SAT 97; BMI 33.3
--- NOTE | 2024-04-20 11:47 | MHC.OFFVIS ---
Vital Signs 04/20/24 11:47 Height 5 ft Weight 170 lb 6.677 oz BMI 33.3 BP 122/64 Blood Pressure Location Rt brachial Position Sitting Pulse 61 Pulse Source Pulse Oximeter Pulse Oximetry (%) 97 Oxygen Delivery Method Room Air Intake Visit Reasons: SS/CM Allergies acetaminophen [From Percocet] Adverse Reaction (Verified 04/20/24 11:59) Hallucinations oxycodone [From Percocet] Adverse Reaction (Verified 04/20/24 11:59) Hallucinations Medication List - Last Reconciled 04/20/24 by Rochelle Grady MD acetaminophen ER (Tylenol Arthritis Pain) 650 mg PO BEDTIME albuterol sulfate 90 mcg/actuation (ProAir HFA) 90 mcg inhalation NEEDED hydroxychloroquine 200 mg PO BID levothyroxine 100 mcg PO DAILY losartan 100 mg PO DAILY metoprolol tartrate 100 mg PO BID omeprazole 20 mg PO DAILY PRN rosuvastatin (Crestor) 10 mg PO DAILY HPI Comments Details: 68-year-old female with Sjogren's returns for follow-up. States that she is doing quite well overall. Remains on hydroxychloroquine 20 mg Twice daily she states that it has helped her overall. She states that she gets intermittent dry mouth, usually in bed, she has a spray that she uses and it helps her. She denies any significant joint pain. She does get right shoulder pain when she sleeps on it at night, it wakes her up from sleep. When she walks for more than an hour sometimes her right knee gives out on her, she did not fall. She denies any buckling or catching. She denies any skin rashes, fevers or weight loss. She stated that she had a stress test that had some abnormality, then a coronary CT angiogram was ordered by her associate director, it has not been done yet. She denies any cough or shortness of breath today. Initial history: This is a 67-year-old female with a past medical history of hypothyroidism, alopecia areata, hypertension, dyslipidemia, mild asthma who presents for evaluation of Sjogren's. Patient has had dry eyes and dry mouth for 3-4 years. Dry mouth is worse at night, she drinks plenty of water. She denies any history of frequent dental infections. She feels the food is dry when she eats and she has to drink plenty of water but food never got stuck in her throat or chest. She also has been having dry eyes for years. She has skin dryness too. In [place] she saw a stocking and box shop supervisor who diagnosed her with Sjogren's and was started on hydroxychloroquine which helped her bilateral knee pain. She took it for 3 months, she is not taking it currently. She has bilateral shoulder pain especially when she sleeps on her sides. She has intermittent shortness of breath, usually when she is resting. Patient has 15 steps of stairs at home and she can climb the stairs with no shortness of breath. Can walk on level ground indefinitely. Has bilateral knee pain with walking improved with Tylenol. [facility] Medical History CRVO (central retinal vein occlusion) Dermatitis Alopecia areata Eczema Hypothyroid High cholesterol Anemia Microhematuria Sleep apnea Asthma Hypertension Surgical History H/O varicose vein stripping LAP-BAND surgery status Family History Mother Diabetes Paternal Aunt Diabetes Breast cancer Uterine cancer Father High blood pressure Social History Household Members: 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 Female Reproductive History Menstrual Total pregnancies: 2 Review of Systems Const All systems reviewed & are unremarkable except as noted in HPI and below Denies weight loss Eyes Reports dry eyes ENT Reports dry mouth Physical Exam Vital Signs: Last Vital Signs Pulse 61 04/20/24 11:47 BP 122/64 04/20/24 11:47 Pulse Ox 97 04/20/24 11:47 Oxygen Delivery Method Room Air 04/20/24 11:47 BMI result Body Mass Index 33.3 Const General: cooperative, healthy appearing, comfortable and no acute distress Nutritional Appearance: average body habitus and well nourished Orientation/consciousness: patient oriented x3 Limitations: no limitations HEENT Mouth: moist mucous membranes Resp Effort & Inspection: normal respiratory effort and able to speak in complete sentences Auscultation: clear to auscultation bilaterally Cardio Rate: regular rate Rhythm: regular rhythm Heart sounds: S1 normal heart sound present, S2 normal heart sound present and Murmur heart sound present systolic (aortic area) GI Inspection: No distended Palpation (GI): Soft to palpation and nontender Back/Spine/Pelvis Other: Mildly kyphotic Neuro General: patient oriented x3 Extrem Other: No synovitis, normal range of motion of her hands shoulders and elbows Negative Hernán's test bilaterally Normal nailfold capillaroscopy Results Reviewed Results Reviewed: Labs from 01/2022?in [place] CARLY positive 1-160 nuclear granular pattern? Anti TPO 34.4 (< 34.0) Anti Ro 52 2876? Anti Ro 60 2749 Anti SS B above 259 Ibrahim/ASSEMBLY STOCK SUPERVISOR/Scl 70/Brittnee-1/centromere/Ribosomal P/dsDNA all negative Rheumatoid factor 246 (<14) C4/C3 normal Sed rate 51 Assessment & Plan Assessment & Plan (1) Sjogren's syndrome: Comment: dx 01/2022 +CARLY ++SSa ++SSb +RF +drye eyes, dry mouth, arthralgias, alopecia areata HCQ 07/2023 effective Code(s): M35.00 - Sjogren syndrome, unspecified Category: Medical Qualifiers: Sjogren organ or system involvement: keratoconjunctivitis Qualified Code(s): M35.01 - Sjogren syndrome with keratoconjunctivitis Plan: This is a 68-year-old female with Sjogren's who presents for follow-up. Doing very well on hydroxychloroquine 200 mg Twice daily. Continue conservative approaches for sicca symptoms including: -continue Biotene mouthwash or Biotene spray for dry mouth -s continue to use artificial tears as needed for dry eyes -consider a humidifier PFTs were done to screen for ILD 02/2023 and it was unremarkable. 2D echo did not show signs of pulmonary hypertension Continue hydroxychloroquine 200 mg Twice daily Follow-up in 1 year. Labs and PFT before next visit (2) Long-term use of hydroxychloroquine: Code(s): Z79.899 - Other exterminator termite (current) drug therapy Category: Medical Plan: Patient was cleared by technology risk intern to use hydroxychloroquine. Advised patient to see her technology risk intern regularly (3) Osteopenia: Code(s): M85.80 - Other specified disorders of bone density and structure, unspecified site Category: Medical Qualifiers: Osteopenia location: multiple sites Qualified Code(s): M85.89 - Other specified disorders of bone density and structure, multiple sites Plan: FRAX 2022 showed osteopenia with a low FRAX score. No need for antiresorptive therapy. Will repeat 02/2025 Plan I spent 45 minutes reviewing patient's chart, evaluating patient, counseling patient and documenting in the chart Orders: Orders Erythrocyte Sedimentation Rate 1 Year M32.9 - Systemic lupus erythematosus, unspecified Protein Creatinine Ratio, Ur 1 Year M32.9 - Systemic lupus erythematosus, unspecified UA w Microscopic 1 Year M32.9 - Systemic lupus erythematosus, unspecified Complete Blood Count Auto Diff 1 Year M32. - Systemic lupus erythematosus, unspecified Comprehensive Met. Panel 1 Year M32.9 - Systemic lupus erythematosus, unspecified Immunofixation Pnl, Serum 1 Year M32.9 - Systemic lupus erythematosus, unspecified PFT pulmonary function test 02/28/25 M35.01 - Sjogren syndrome with keratoconjunctivitis, R06.02 - Shortness of breath Rheumatoid Factor 1 Year M35. - Sjogren syndrome with keratoconjunctivitis Anti DNA DS Antibody 1 Year M32.9 - Systemic lupus erythematosus, unspecified Complement C3 1 Year M32.9 - Systemic lupus erythematosus, unspecified Complement C4 1 Year M32.9 - Systemic lupus erythematosus, unspecified C Reactive Protein 1 Year M32.9 - Systemic lupus erythematosus, unspecified Protein Electrophoresis, Serum 1 Year M32.9 - Systemic lupus erythematosus, unspecified XR DEXA axial skeleton 02/28/25 N95.1 - Menopausal and female climacteric states Medications: Refilled hydroxychloroquine 200 mg PO BID 180 tabs 1RF Coding Level of Care Code Est Pt Level 5 (06525) Complex EM visit Add On G2211 Diagnoses Sjogren's syndrome with keratoconjunctivitis sicca M35. Sjogren organ or system involvement: keratoconjunctivitis Long-term use of hydroxychloroquine Z79.899 Osteopenia of multiple sites M85.89 Osteopenia location: multiple sites
== END 2024-04-20 12:24 | disposition home or self-care (01) ==
PROVIDERS: PCP Internal Medicine; Visit Provider Student in an Organized Health Care Education/Training Program
DX: M35.01 Sjogren syndrome with keratoconjunctivitis (principal); Z79.899 Other long term (current) drug therapy; M85.89 Other specified disorders of bone density and structure, multiple sites
CPT/HCPCS: 99215; G2211

== ENCOUNTER → 2024-04-20 11:27 | Outpatient (BNVA) | payer OTHER, SELFPAY | PROVIDERS: PCP Internal Medicine; Visit Provider Student in an Organized Health Care Education/Training Program ==

== ENCOUNTER 2024-05-30 11:04 | Outpatient (REF) | payer OTHER, SELFPAY ==
[2024-05-30 12:29] LABS: Anion Gap 12 (12-20); Blood Urea Nitrogen 15 mg/dL (9-16); Calcium 9.8 mg/dL (8.4-10.2); Carbon Dioxide 27 mmol/L (22-29); Chloride 102 mmol/L (96-108); Cholesterol 145 mg/dL (<200); Estimated Glomerular Filt Rate > 60; Glucose Random 101 mg/dL (60-115); HDL Cholesterol 67 mg/dL (>40); LDL Cholesterol Calculated 66 mg/dL (<100); Sodium 136 mmol/L (135-145); Triglycerides 61 mg/dL (<150)
== END 2024-05-30 11:05 | disposition home or self-care (01) ==
LOC: HO.LAB 11:04
PROVIDERS: PCP Internal Medicine; Visit Provider Internal Medicine Cardiovascular Disease
DX: I25.10 Atherosclerotic heart disease of native coronary artery without angina pectoris (principal)
CPT/HCPCS: 36415; 80048; 80061

== ENCOUNTER 2024-06-07 13:11 | Outpatient (AMB) | payer OTHER, SELFPAY ==
[2024-06-07 13:18] VITALS: BP 120/80; PULSE 68; BMI 33.1
--- NOTE | 2024-06-07 13:18 | MHC.OFFVIS ---
Vital Signs 06/07/24 13:18 Height 5 ft Weight 169 lb 12.095 oz BMI 33.1 BP 120/80 Blood Pressure Location Lt brachial Position Sitting Pulse 68 Intake Visit Reasons: f/up cta/ lipids Intake Note: Follow-up CTA and lipids feeling good Voice Intercept Technician Required: No Quality And Reliability Engineer: Quality And Reliability Engineer Present Accompanied by: Spouse Allergies acetaminophen [From Percocet] Adverse Reaction (Verified 04/20/24 11:59) Hallucinations oxycodone [From Percocet] Adverse Reaction (Verified 04/20/24 11:59) Hallucinations Medication List - Last Reconciled 06/07/24 by Thierno Navarro MD acetaminophen ER (Tylenol Arthritis Pain) 650 mg PO BEDTIME albuterol sulfate 90 mcg/actuation (ProAir HFA) 90 mcg inhalation NEEDED hydroxychloroquine 200 mg PO BID levothyroxine 100 mcg PO DAILY losartan 100 mg PO DAILY metoprolol tartrate 100 mg PO BID omeprazole 20 mg PO DAILY PRN rosuvastatin (Crestor) 10 mg PO DAILY HPI Comments Details: Elbow comes for follow-up after recent coronary CTA which shows nonobstructive minimal disease in the left main. Patient has no new cardiac symptoms. Denies any exertional chest pain or shortness of breath. Denies any heart failure symptoms. Takes all her medications. Blood pressures are well controlled. [facility] Medical History (Updated 06/07/24 @ 13:42 by Thierno Navarro MD) CRVO (central retinal vein occlusion) Dermatitis Alopecia areata Eczema Hypothyroid High cholesterol Anemia Microhematuria Sleep apnea Asthma Hypertension Surgical History H/O varicose vein stripping LAP-BAND surgery status Family History Mother Diabetes Paternal Aunt Diabetes Breast cancer Uterine cancer Father High blood pressure Social History Household Members: Spouse Housing: Condominium Are you a primary healthcare management to a significant other at home: No Do you presently have visiting nurse or other home services: No Alcohol intake: current Alcohol intake frequency: 0-2 drinks per day Alcohol type: wine Patient Tobacco Use Status: Never used Tobacco service: No 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 Review of Systems Const Denies chills, Denies fatigue, Denies fever(s), Denies frequent falls, Denies weakness, Denies weight gain and Denies weight loss ENT Denies dizziness Card Denies chest pain, Denies leg edema, Denies lightheadedness, Denies palpitations, Denies dyspnea, Denies dyspnea on exertion, Denies orthopnea and Denies other (loss of consciousness) Resp Denies cough, Denies dyspnea and Denies dyspnea on exertion GI Denies hematochezia and Denies change in stool character Musc Denies abnormal gait, Denies muscle weakness, Denies numbness, Denies radiating pain into limb and Denies tingling Neuro Denies Abnormal speech present, Denies abnormal gait, Denies dizziness, Denies frequent falls, Denies numbness, Denies tingling and Denies weakness Endo Denies fatigue and Denies palpitations Physical Exam Vital Signs: Last Vital Signs Pulse 68 06/07/24 13:18 BP 120/80 06/07/24 13:18 BMI result Body Mass Index 33.1 Const General: cooperative, comfortable, no acute distress, alert and awake Nutritional Appearance: obese Orientation/consciousness: patient oriented x3 Limitations: no limitations HEENT Head: Yes normocephalic and Yes atraumatic Neck Neck: Yes trachea midline, Yes supple and Yes no JVD Resp Effort & Inspection: normal respiratory effort Auscultation: clear to auscultation bilaterally Cardio Jugular venous distension: no JVD Palpation: normal PMI Rate: regular rate Rhythm: regular rhythm Heart sounds: S1 normal heart sound present, S2 normal heart sound present, no click, no gallops and Murmur heart sound present diastolic early, blowing and at the right sternal border GI Auscultation: normal bowel sounds Skin General skin exam: no rashes or lesions noted Neuro General: patient oriented x3 and no focal motor deficits Speech: No Abnormal speech present Extrem General: Yes no clubbing, cyanosis or edema Assessment & Plan Assessment & Plan (1) Ascending aorta dilatation: Code(s): I77.810 - Thoracic aortic ectasia Category: Medical Plan: Patient moderate ascending aortic aneurysm at 4.6 cm. This has remained stable. Follow-up echocardiogram on annual basis. Continue aggressive medical management. We discussed pathophysiology of ascending aortic aneurysm. I would suggest her to continue aggressive management of hypertension. This is currently well optimized advised to monitor blood pressure at home and maintain a log. Advised to avoid sudden strenuous isometric exercise. Advised to seek emergency care for sudden-onset tearing chest pain (2) Aortic regurgitation: Code(s): I35.1 - Nonrheumatic aortic (valve) insufficiency Category: Medical Plan: Aortic regurgitation which is clinically mild and by echocardiogram mi most likely related to ascending aortic pathology. No interventions required. Continue aggressive blood pressure control. (3) CAD (coronary artery disease): Code(s): I25.10 - Atherosclerotic heart disease of hoopa coronary artery without angina pectoris Category: Medical Plan: CAD which is nonobstructive minimal by cardiac CTA. Continue aggressive medical management. Continue low-dose aspirin therapy. Continue aggressive blood pressure control. LDL is currently well optimized on rosuvastatin therapy. Advise annual lipid panel. (4) Hypertension: Code(s): I10 - Essential (primary) hypertension Category: Medical Plan: Hypertension with hypertensive heart disease with mild LVH and severely dilated left atrium. Continue aggressive management of blood pressure. Blood pressure is currently well optimized importance of good blood pressure control was discussed. Target goal blood pressure less than 130/84. Low-salt diet was discussed. Will follow up in the clinic in 1 year's time, sooner p.r.n.. Thank you for allowing me to partake in his care Orders: Orders CA echo transthoracic complete 1 Year I77.810 - Thoracic aortic ectasia Coding Level of Care Code Est Pt Level 4 (31629) Diagnoses Ascending aorta dilatation I77.810 Aortic regurgitation I35.1 CAD (coronary artery disease) I25.10 Hypertension I10
== END 2024-06-07 14:00 | disposition home or self-care (01) ==
PROVIDERS: PCP Internal Medicine; Visit Provider Internal Medicine Cardiovascular Disease
DX: I77.810 Thoracic aortic ectasia (principal); I35.1 Nonrheumatic aortic (valve) insufficiency; I25.10 Atherosclerotic heart disease of native coronary artery without angina pectoris; I10 Essential (primary) hypertension
CPT/HCPCS: 99214

== ENCOUNTER → 2024-06-07 13:11 | Outpatient (BNVA) | payer OTHER, SELFPAY | PROVIDERS: PCP Internal Medicine; Visit Provider Internal Medicine Cardiovascular Disease ==

== ENCOUNTER → 2025-02-08 10:44 | Outpatient (BNV) | payer OTHER, SELFPAY | PROVIDERS: PCP Internal Medicine; Referring Provider Internal Medicine; Visit Provider Internal Medicine Medical Oncology | DX: D50.9 Iron deficiency anemia, unspecified (principal) | CPT/HCPCS: 99204 ==

== ENCOUNTER 2025-07-30 14:54 | Outpatient (REF) | payer OTHER, SELFPAY ==
--- OUTSIDE RECORDS SUMMARY | 2025-07-30 16:14 | XMS_ITS | Patient Health Record ---
Author Organization [facility] Address [address] [place] [address] Care Team Providers Care Bathroom Tiling Professional Name Role Phone Jenniffer Justice Primary Care Provider Unavailab Herman Black Unavailable [phone] Reason For Referral No Information Plan Of Treatment No Information Insurance Providers Payer Name Payer Address Payer Phone Subscriber Number Group Number Insured Name Patient Relationship to Insured Coverage Start Date Coverage End Date [facility] [address] [place] [address] [id number] [place] Self - patient is the insured
[2025-07-30 18:14] LABS: Baso%MD 2.2 %; Eos%MD 5.8 %; Hematocrit 30.9 % (37.0-47.0); Hemoglobin 10.0 g/dl (12.0-16.0); IG%MD 0.2 %; Lymph%MD 15.3 %; Mean Corpuscular HGB Conc 32.4 g/dl (31.0-35.0); Mean Corpuscular Hemoglobin 33.0 pg (27.0-33.0); Mean Corpuscular Volume 102.0 fL (80.0-98.0); Mono%MD 9.8 %; NRBC Abs Auto 0.000 X10*3/uL (0.0-0.012); NRBC Pct Auto 0.0 /100WBC (0.0-0.2); Neut%MD 66.7 %; Platelet Count 292 X10*3/uL (160-400); Red Blood Count 3.03 X10*6/uL (4.20-5.50); White Blood Count 4.2 X10*3/uL (4.8-10.8)
[2025-07-30 18:33] LABS: Alanine Aminotransferase 12 U/L (0-31); Aspartate Amino Transferase 28 U/L (5-31); Estimated Glomerular Filt Rate 56
[2025-07-30 19:35] LABS: Band Neutrophils Percent 0 % (3-5); Basophils Abs Manual 0.1 X10*3/uL (0.0-0.2); Basophils Percent Manual 2 % (0-2); Eosinophils Absolute Manual 0.2 X10*3/uL (0.0-0.4); Eosinophils Percent Manual 4 % (0-4); Lymphocytes Absolute Manual 0.4 X10*3/uL (1.2-4.9); Lymphocytes Percent Manual 10 % (20-40); Monocytes Absolute Manual 0.4 X10*3/uL (0.1-1.2); Monocytes Percent Manual 9 % (2-11); Neutrophils Absolute Manual 3.2 X10*3/uL (2.0-8.3); Neutrophils Percent Manual 75 % (45-73)
[2025-07-30 19:36] LABS: RBC Morphology NORMAL
== END 2025-07-30 14:55 | disposition home or self-care (01) ==
LOC: HO.HKASLDS 14:54
PROVIDERS: PCP Internal Medicine; Visit Provider Student in an Organized Health Care Education/Training Program
DX: Z01.84 Encounter for antibody response examination (principal); M35.01 Sjogren syndrome with keratoconjunctivitis; M32.9 Systemic lupus erythematosus, unspecified
CPT/HCPCS: 36415; 82565; 82784; 84450; 84460; 85007; 85027; 85652; 86140; 86160; 86225; 86334; 86431

== ENCOUNTER 2025-07-31 14:38 | Outpatient (REF) | payer OTHER, SELFPAY ==
--- OUTSIDE RECORDS SUMMARY | 2025-07-31 15:51 | XMS_ITS | Patient Health Record ---
Author Organization [facility] Address [address] [place] [address] Care Team Providers Care Database Marketing Specialist Name Role Phone Jenniffer Justice Primary Care Provider Unavailab Herman Black Unavailable [phone] Reason For Referral No Information Plan Of Treatment No Information Insurance Providers Payer Name Payer Address Payer Phone Subscriber Number Group Number Insured Name Patient Relationship to Insured Coverage Start Date Coverage End Date [facility] [address] [place] [address] [phone] [id number] [place] WIN Self - patient is the insured
[2025-07-31 18:20] LABS: Appearance Urine Cloudy; Glucose Urine UA Negative (Negative); PH 6.0 (5.0-9.0); Specific Gravity - Urine 1.010 (1.005-1.025); UMIC TRIGGER UA YES
[2025-07-31 19:44] LABS: Protein/Creatinine Ratio, Ur 0.18 (<0.2); Total Protein Urine Random 11 mg/dL (<12)
== END 2025-07-31 14:39 | disposition home or self-care (01) ==
LOC: HO.HKASLDS 14:38
PROVIDERS: PCP Internal Medicine; Visit Provider Student in an Organized Health Care Education/Training Program
DX: M32.9 Systemic lupus erythematosus, unspecified (principal)
CPT/HCPCS: 81001; 82570; 84156

== ENCOUNTER 2025-08-06 14:07 | Outpatient (REF) | payer OTHER, SELFPAY ==
--- OUTSIDE RECORDS SUMMARY | 2025-08-06 17:21 | XMS_ITS | Patient Health Record ---
Author Organization [facility] Address [address] [place] [address] Care Team Providers Care Laborer Heading Name Role Phone Jenniffer Justice Primary Care Provider Unavailab Herman Black Unavailable [phone] Reason For Referral No Information Plan Of Treatment No Information Insurance Providers Payer Name Payer Address Payer Phone Subscriber Number Group Number Insured Name Patient Relationship to Insured Coverage Start Date Coverage End Date [facility] [address] [place] [address] [id number] [place] W[employer] Self - patient is the insured
[2025-08-06 18:14] LABS: Appearance Urine Cloudy; Glucose Urine UA Negative (Negative); PH 6.5 (5.0-9.0); Specific Gravity - Urine 1.010 (1.005-1.025); UMIC TRIGGER UA YES
== END 2025-08-06 14:08 | disposition home or self-care (01) ==
LOC: HO.HKASLDS 14:07
PROVIDERS: PCP Internal Medicine; Visit Provider Student in an Organized Health Care Education/Training Program
DX: N39.0 Urinary tract infection, site not specified (principal)
CPT/HCPCS: 81001; 87086; 87088; 87186

== ENCOUNTER 2025-08-07 15:01 | Outpatient (AMB) | payer OTHER, SELFPAY ==
--- NOTE | 2025-08-07 15:03 | A.OFFVIS_ITS ---
Vital Signs 08/07/25 15:07 Height 5 ft Weight 162 lb 14.746 oz BMI 31.8 BP 134/80 Blood Pressure Location Lt brachial Position Sitting Pulse 60 Pulse Source Pulse Oximeter Pulse Oximetry (%) 99 Oxygen Delivery Method Room Air Intake Visit Reasons: SS Intake Note: Patient presents for SS follow up. Allergies acetaminophen (From Percocet) Adverse Reaction (Verified 08/07/25 15:06) Hallucinations oxycodone (From Percocet) Adverse Reaction (Verified 08/07/25 15:06) Hallucinations Medication List - Last Reconciled 08/07/25 by Judith Hamilton MD acetaminophen ER (Tylenol Arthritis Pain) 650 mg PO BEDTIME albuterol sulfate 90 mcg/actuation (ProAir HFA) 90 mcg inhalation NEEDED conjugated estrogens (Premarin) 0.625 mg vaginal DAILY hydroxychloroquine 200 mg PO BID levothyroxine 100 mcg PO DAILY lidocaine 5% 2 patches topical DAILY losartan 100 mg PO DAILY metoprolol tartrate 100 mg PO BID omeprazole 20 mg PO DAILY PRN rosuvastatin (Crestor) 10 mg PO DAILY HPI Comments Details: Patient is a 70-year-old female with hypothyroidism, hypertension, GERD, hyperlipidemia complicated by coronary artery disease and dilated ascending aorta and Sjogren's syndrome here today for follow up Interval History: Patient last seen 04/20/[address] Grady - On Hydroxychloroquine 200mg bid - States that she is doing quite well overall. Remains on hydroxychloroquine 20 mg Twice daily she states that it has helped her overall. She states that she gets intermittent dry mouth, usually in bed, she has a spray that she uses and it helps her. She denies any significant joint pain. She does get right shoulder pain when she sleeps on it at night, it wakes her up from sleep. When she walks for more than an hour sometimes her right knee gives out on her, she did not fall. She denies any buckling or catching. She denies any skin rashes, fevers or weight loss. She stated that she had a stress test that had some abnormality, then a coronary CT angiogram was ordered by her horticulture worker, it has not been done yet. She denies any cough or shortness of breath today. Today - On Hydroxychloroquine 200mg bid - Complaining of intermittent joint pain involving the knees, shoulders and hands - Off HCQ for the past 2 weeks - Not noticing any difference in sx Rheumatologic History: Initial history: This is a 67-year-old female with a past medical history of hypothyroidism, alopecia areata, hypertension, dyslipidemia, mild asthma who presents for evaluation of Sjogren's. Patient has had dry eyes and dry mouth for 3-4 years. Dry mouth is worse at night, she drinks plenty of water. She denies any history of frequent dental infections. She feels the food is dry when she eats and she has to drink plenty of water but food never got stuck in her throat or chest. She also has been having dry eyes for years. She has skin dryness too. In [place] she saw a stained glass painter who diagnosed her with Sjogren's and was started on hydroxychloroquine which helped her bilateral knee pain. She took it for 3 months, she is not taking it currently. She has bilateral shoulder pain especially when she sleeps on her sides. She has intermittent shortness of breath, usually when she is resting. Patient has 15 steps of stairs at home and she can climb the stairs with no shortness of breath. Can walk on level ground indefinitely. Has bilateral knee pain with walking improved with Tylenol. Current Rheumatology Medication(s): Hydroxychloroquine 200mg bid [facility] Medical History (Updated 02/08/25 @ 11:26 by Tanya Justice MD) CRVO (central retinal vein occlusion) Dermatitis Alopecia areata Eczema Hypothyroid High cholesterol Anemia Microhematuria Sleep apnea Asthma Hypertension Surgical History H/O varicose vein stripping LAP-BAND surgery status Family History Mother Diabetes Paternal Aunt Diabetes Breast cancer Uterine cancer Father High blood pressure Social History Household Members: Spouse Housing: Condominium Are you a primary health care law specialist to a significant other at home: No Do you presently have visiting nurse or other home services: No Alcohol intake: current Alcohol intake frequency: 0-2 drinks per day Alcohol type: wine Patient Tobacco Use Status: Never used Tobacco service: No Current occupational status: retired 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 Review of Systems Const Details: Review of Systems Constitutional: Denies fever, chills, weight loss ENT: Denies vision changes, eye pain or eye redness, dental caries, dry mouth GI: Denies nausea, vomiting, diarrhea, abdominal pain, change in BM Pulm: Denies SOB, PANDEY, hemoptysis, wheezing Cards: Denies chest pain, palpitations Skin: Denies Raynaud's, rash, nail changes, photosensitivity, MANAGER MECHANICAL: Denies headaches, weakness, paresthesias, recurrent falls MSK: as per HPI All other systems reviewed and are unremarkable except noted above Physical Exam Exam Exam: Vital signs reviewed Physical Examination CONSTITUITIONAL Patient alert and cooperative. Well appearing and in no apparent painful distress MSK Hands * Right Hand: Able to make a fist. No swelling or tenderness to palpation of the MCPs, PIPs or DIPs. * Left Hand: Able to make a fist. No swelling or tenderness to palpation of the MCPs, PIPs or DIPs. * Herbedens nodes noted bilaterally Wrists * Right Wrist: Full ROM to flexion and extension. No swelling or TTP * Left Wrist: Full ROM to flexion and extension. No swelling or TTP Elbows * Right Elbow: Full ROM. No swelling or TTP. No TTP of the medial epicondyle. No TTP of the lateral epicondyle * Left Elbow: Full ROM. No swelling or TTP. No TTP of the medial epicondyle. No TTP of the lateral epicondyle Shoulders * Right shoulder: Full ROM. No swelling noted. No TTP of the AC joint. No TTP of the subacromial bursa. No TTP of the posterior shoulder * Left shoulder: Full ROM. No swelling noted. No TTP of the AC joint. No TTP of the subacromial bursa. No TTP of the posterior shoulder Knees * Right knee: Full ROM. No swelling noted. No TTP of the knee joint line. No TTP of pes anserine bursa * Left knee: Full ROM. No swelling noted. No TTP of the knee joint line. No TTP of pes anserine bursa. * Crepitations felt bilaterally Ankles * Right ankle: Good ankle dorsiflexion and plantar flexion. No swelling. No TTP of the ankle joint * Left ankle: Good ankle dorsiflexion and plantar flexion. No swelling. No TTP of the ankle joint Feet * Right foot: Negative squeeze test * Left foot: Negative squeeze test Tender points? * No tenderness to palpation of the bilateral trapezius, supraspinatus, anterior costochondral junctions, bilateral suboccipital muscle insertions SKIN No rashes Vital Signs: Last Vital Signs Pulse 60 08/07/25 15:07 BP 134/80 08/07/25 15:07 Pulse Ox 99 08/07/25 15:07 Oxygen Delivery Method Room Air 08/07/25 15:07 BMI result Body Mass Index 31.8 Results Reviewed Results Reviewed: Laboratory Tests 06/20/23 07/30/25 12:40 15:11 WBC 4.2 L RBC 3.03 L Hgb 10.0 L Hct 30.9 L Plt Count 292 D ESR 61 H Creatinine 0.98 Estimated GFR 56 AST 28 ALT 12 C-Reactive Protein 0.13 1.00 H Laboratory Tests 06/20/23 07/30/25 12:40 15:11 Rheumatoid Factor 56.6 H CARLY Screen POSITIVE A CARLY Titer 1:1280 H DEXA 02/2025 Findings: Left femoral neck T-score -1.5 FRAX 7.9/0.8 Assessment & Plan Assessment & Plan (1) Sjogren's syndrome: Comment: dx 01/2022 +CARLY ++SSa ++SSb +RF +drye eyes, dry mouth, arthralgias, alopecia areata HCQ 07/2023 effective Code(s): M35.00 - Sjogren syndrome, unspecified Category: Medical Qualifiers: Sjogren organ or system involvement: keratoconjunctivitis Qualified Code(s): M35.01 - Sjogren syndrome with keratoconjunctivitis Plan: #Sjogren's syndrome Patient is a 70-year-old female with Sjogren's syndrome here today for follow up. Her disease continues to be characterized by sicca symptoms including dry eyes and dry mouth. No arthralgias or synovitis on examination despite being off Plaquenil for the past 2 weeks. Further patient feels that while she has stopped her hydroxychloroquine there has not been any worsening of her symptoms. I discussed with the patient that hydroxychloroquine is not a pain controller it is an immunosuppressant and can help with the immune related joint pains that occur with Sjogren's. Her current complaints are more osteoarthritic in nature and would not be benefitted by hydroxychloroquine. Given this patient would like to hold hydroxychloroquine Continue topical drops and mouthwash Plan - Hold Hydroxychloroquine - RTC 1 year - Labs before visit: CBC, CMP, ESR, CRP, C3, C4, dsDNA, RF (2) Osteopenia: Code(s): M85.80 - Other specified disorders of bone density and structure, unspecified site Category: Medical Qualifiers: Osteopenia location: multiple sites Qualified Code(s): M85.89 - Other specified disorders of bone density and structure, multiple sites Plan: #Osteopenia Patient with osteopenia and low FRAX index. Last bone density 2022 We will need to update to see if there has been any change Plan - DEXA scan - Vit D (3) Polyarticular osteoarthritis: Code(s): M15.9 - Polyosteoarthritis, unspecified Plan: #Polyarticular OA Patient with polyarticular osteoarthritis on examination. Continued Tylenol Also recommend lidocaine patches Plan - Tylenol 650mg PO bid - Lidocaine 5% patches (4) Vaginal atrophy: Code(s): N95.2 - Postmenopausal atrophic vaginitis Plan: #Vaginal atrophy Patient complaining of itching and burning urinary symptoms. It is likely that she has vaginal atrophy in the setting of menopause. Checking urine culture for infection Plan - Premarin cream - F/u urine culture (5) Long-term use of hydroxychloroquine: Code(s): Z79.899 - Other manager intermediate (current) drug therapy Category: Medical Plan This is my first visit with the patient. I spent 30 minutes reviewing the record and labs, taking a history, examining the patient, discussing the treatment plan, ordering diagnostic work up and documenting in the medical record Orders: Orders XR DEXA axial skeleton Today M81.0 - Age-related osteoporosis without current pathological fracture Medications: New conjugated estrogens (Premarin) off 5 days; repeat cycle 0.625 mg vaginal DAILY 30 grams 0RF N95.2 - Postmenopausal atrophic vaginitis lidocaine 5% leave on most painful area for up to 12 hrs 2 patches topical DAILY 30 ea 1RF M54.9 - Dorsalgia, unspecified Changed From acetaminophen ER (Tylenol Arthritis Pain) 650 mg PO BEDTIME M15.9 - Polyosteoarthritis, unspecified To acetaminophen ER (Tylenol Arthritis Pain) 650 mg PO BEDTIME 90 tabs 1RF 90 days M15.9 - Polyosteoarthritis, unspecified Coding Level of Care Code Est Pt Level 4 (54997) Complex EM visit Add On G2211 Diagnoses Sjogren's syndrome with keratoconjunctivitis sicca M35.01 Sjogren organ or system involvement: keratoconjunctivitis Osteopenia of multiple sites M85.89 Osteopenia location: multiple sites Polyarticular osteoarthritis M15.9 Vaginal atrophy N95.2 Long-term use of hydroxychloroquine Z79.899
[2025-08-07 15:07] VITALS: BP 134/80; PULSE 60; O2SAT 99; BMI 31.8
== END 2025-08-07 15:38 | disposition home or self-care (01) ==
LOC: HO.RHES 15:01
PROVIDERS: PCP Internal Medicine; Visit Provider Student in an Organized Health Care Education/Training Program
DX: M35.01 Sjogren syndrome with keratoconjunctivitis (principal); M85.89 Other specified disorders of bone density and structure, multiple sites; M15.9 Polyosteoarthritis, unspecified; N95.2 Postmenopausal atrophic vaginitis; Z79.899 Other long term (current) drug therapy
CPT/HCPCS: 99214; G2211

== ENCOUNTER 2025-08-08 14:57 | Outpatient (AMB) | payer OTHER, SELFPAY ==
[2025-08-08 15:01] VITALS: BP 110/70; PULSE 59; BMI 31.4
--- NOTE | 2025-08-08 15:01 | MHC.OFFVIS ---
Vital Signs 08/08/25 15:01 Height 5 ft Weight 160 lb 14.999 oz BMI 31.4 BP 110/70 Blood Pressure Location Lt brachial Position Sitting Pulse 59 Intake Visit Reasons: 1 yr follow up Intake Note: 1 year follow-up with ekg feeling good Dental Practice Manager Required: No Narrow Fabric Calenderer: Narrow Fabric Calenderer Present Accompanied by: Spouse Allergies acetaminophen (From Percocet) Adverse Reaction (Verified 08/07/25 15:06) Hallucinations oxycodone (From Percocet) Adverse Reaction (Verified 08/07/25 15:06) Hallucinations Medication List - Last Reconciled 08/08/25 by Thierno Navarro MD acetaminophen ER (Tylenol Arthritis Pain) 650 mg PO BEDTIME 90 days albuterol sulfate 90 mcg/actuation (ProAir HFA) 90 mcg inhalation NEEDED levothyroxine 100 mcg PO DAILY losartan 100 mg PO DAILY metoprolol tartrate 100 mg PO BID omeprazole 20 mg PO DAILY PRN rosuvastatin (Crestor) 10 mg PO DAILY HPI Comments Details: Nicky comes for follow-up. Overall she has been doing well. She has been active and denies any symptoms exertional chest pain or shortness of breath. She says the symptoms of palpitations happen infrequently and happen as a fluttering in his chest that last for few sec. she says symptoms of lot better than in the past before metoprolol therapy. Blood pressure is generally well controlled. She remains active and denies any exertional chest pain or shortness of breath. No recent echocardiogram has been done to follow up her ascending aortic aneurysm. She denies any lightheadedness, syncope. No heart failure symptoms. [facility] Medical History Ascending aortic aneurysm CRVO (central retinal vein occlusion) Dermatitis Alopecia areata Eczema Hypothyroid High cholesterol Anemia Microhematuria Sleep apnea Asthma Hypertension Surgical History H/O varicose vein stripping LAP-BAND surgery status Family History Mother Diabetes Paternal Aunt Diabetes Breast cancer Uterine cancer Father High blood pressure Social History Household Members: Spouse Housing: Condominium Are you a primary career technology teacher to a significant other at home: No Do you presently have visiting nurse or other home services: No Alcohol intake: current Alcohol intake frequency: 0-2 drinks per day Alcohol type: wine Patient Tobacco Use Status: Never used Tobacco service: No Current occupational status: retired 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 [employer] Review of Systems Const Denies chills, Denies fatigue, Denies fever(s), Denies frequent falls, Denies weakness, Denies weight gain and Denies weight loss ENT Denies dizziness Card Denies chest pain, Denies leg edema, Denies lightheadedness, Denies palpitations, Denies dyspnea, Denies dyspnea on exertion, Denies orthopnea and Denies other (loss of consciousness) Resp Denies cough, Denies dyspnea and Denies dyspnea on exertion GI Denies hematochezia and Denies change in stool character Musc Denies abnormal gait, Denies muscle weakness, Denies numbness, Denies radiating pain into limb and Denies tingling Neuro Denies Abnormal speech present, Denies abnormal gait, Denies dizziness, Denies frequent falls, Denies numbness, Denies tingling and Denies weakness Endo Denies fatigue and Denies palpitations Physical Exam Vital Signs: Last Vital Signs Pulse 59 08/08/25 15:01 BP 110/70 08/08/25 15:01 BMI result Body Mass Index 31.4 Const General: cooperative, comfortable, no acute distress, alert and awake Nutritional Appearance: obese Orientation/consciousness: patient oriented x3 Limitations: no limitations HEENT Head: Yes normocephalic and Yes atraumatic Neck Neck: Yes trachea midline, Yes supple and Yes no JVD Resp Effort & Inspection: normal respiratory effort Auscultation: clear to auscultation bilaterally Cardio Jugular venous distension: no JVD Palpation: normal PMI Rate: regular rate Rhythm: regular rhythm Heart sounds: S1 normal heart sound present, S2 normal heart sound present, no click, no gallops and Murmur heart sound present diastolic early, blowing and at the right sternal border GI Auscultation: normal bowel sounds Skin General skin exam: no rashes or lesions noted Neuro General: patient oriented x3 and no focal motor deficits Speech: No Abnormal speech present Extrem General: Yes no clubbing, cyanosis or edema Office Procedures EKG Details: EKG shows normal sinus rhythm nonspecific ST-T changes [id number], Complete Assessment & Plan Assessment & Plan (1) Ascending aortic aneurysm: Code(s): I71.21 - Aneurysm of the ascending aorta, without rupture Category: Medical Plan: Ascending aortic aneurysm which is moderate. No recent follow-up. Will suggest an echocardiogram in near future. Management of ascending aortic aneurysm was discussed. Discussed with her about avoiding sudden strenuous isometric exercise. Regular physical activity is otherwise fine. Aggressive control blood pressure is advised. Follow up of echocardiogram in near future and will further guide therapy. If remained stable does not require any surgical intervention. (2) CAD (coronary artery disease): Code(s): I25.10 - Atherosclerotic heart disease of [place] coronary artery without angina pectoris Category: Medical Plan: Nonobstructive CAD without any significant complaints at this point time. Continue low-dose aspirin therapy. Continue aggressive blood pressure control. Continue statin therapy with target goal LDL less than 70 mg/dL. (3) Hypertension: Code(s): I10 - Essential (primary) hypertension Category: Medical Plan: Hypertension which is currently well optimized on metoprolol and losartan therapy. Importance of good blood pressure control was discussed. Advised to monitor blood pressure and maintain a log. Goal blood pressure less than 130/84. Low-salt diet was discussed. Will follow up in the clinic in 1 year's time, sooner p.r.n.. Thank you for allowing me to partake in her care Orders: Orders CA echo transthoracic complete 1 Year I71.21 - Aneurysm of the ascending aorta, without rupture CA echo transthoracic complete Today I71.21 - Aneurysm of the ascending aorta, without rupture Coding Level of Care Code Est Pt Level 4 (74931) Complex EM visit Add On G2211 Diagnoses Ascending aortic aneurysm I71.21 CAD (coronary artery disease) I25.10 Hypertension I10 CPT Codes EKG - CPT: [id number], Complete ([id number])
--- OUTSIDE RECORDS SUMMARY | 2025-08-08 15:01 | XMS_ITS | Patient Health Record ---
Author Organization [facility] Address [address] [place] [address] Care Team Providers Care Furniture Duster Name Role Phone Jenniffer Justice Primary Care Provider Unavailab Herman Black Unavailable [phone] Reason For Referral No Information Plan Of Treatment No Information Insurance Providers Payer Name Payer Address Payer Phone Subscriber Number Group Number Insured Name Patient Relationship to Insured Coverage Start Date Coverage End Date [facility] [address] [place] [address] [id number] [place] WIN Self - patient is the insured
== END 2025-08-08 15:21 | disposition home or self-care (01) ==
LOC: HO.HCS 14:58
PROVIDERS: PCP Internal Medicine; Visit Provider Internal Medicine Cardiovascular Disease
DX: I71.21 Aneurysm of the ascending aorta, without rupture (principal); I25.10 Atherosclerotic heart disease of native coronary artery without angina pectoris; I10 Essential (primary) hypertension
CPT/HCPCS: 93010; 99214; G2211

== ENCOUNTER → 2025-08-08 14:57 | Outpatient (BNVA) | payer OTHER, SELFPAY | PROVIDERS: PCP Internal Medicine; Visit Provider Internal Medicine Cardiovascular Disease | DX: I71.21 Aneurysm of the ascending aorta, without rupture (principal); I10 Essential (primary) hypertension; I25.10 Atherosclerotic heart disease of native coronary artery without angina pectoris | CPT/HCPCS: 93005 ==

== ENCOUNTER → 2025-09-10 12:29 | Outpatient (REF) | payer MEDICARE, SELFPAY ==
--- NOTE | 2025-09-10 12:32 | CA_ITS ---
Transthoracic Echocardiogram Patient (Last, First, Middle): Nicky Fritz, Gender: F Date of : 1955 Age: 70 Procedure Date: 09/10/2025 Procedure Type: Transthoracic Echocardiogram Location: OP Height: 152.4 cm Weight: 72.58 kg BSA: 1.70 m2 Heart Rate: bpm BP: 144 / 82 mmHg Medical Housekeeper: TO Referring MD: Thierno Navarro MD Movement Assembler: Thierno Navarro MD Symptoms: I71.21 - Aneurysm of the ascending aorta, without rupture Study Quality: Adequate ECG Rhythm: Sinus Conclusions: - 1. Moderately dilated left ventricle with low normal LV ejection fraction 50-55% with restrictive filling pattern 2. Severely dilated left atrium 3. Moderate aortic regurgitation 4. Mild mitral regurgitation 5. Moderately elevated right ventricular systolic pressure with mildly elevated right atrial pressures 5. Moderately dilated ascending aorta at 4.5 cm 6. No gross pericardial effusion Findings Left Ventricle Moderately increased left ventricular cavity size. There is normal left ventricular wall thickness. The left ventricular systolic function is low normal. The visually estimated ejection fraction is between 50-55%. Spectral Doppler is indicative of a restrictive filling pattern. Right Ventricle Mildly increased right ventricular cavity size. There is normal right ventricular systolic function. Atria The left atrium is severely dilated. There is no evidence of interatrial shunt. The right atrium is mildly dilated. Aortic Valve There is mild calcification of the aortic valve. There is no aortic valve stenosis. There is moderate aortic valve regurgitation. Mitral Valve There is mild anterior and posterior mitral leaflet thickening. There is mild mitral annular calcification. There is mild mitral valve regurgitation. There is no mitral valve stenosis. Pulmonic Valve The pulmonic valve is likely normal. There is trace to mild pulmonic valve regurgitation. Tricuspid Valve Normal tricuspid valve structure. Mildly elevated right atrial pressure. Moderate pulmonary hypertension is present. Great Vessels The pulmonary artery was not well visualized. There is moderate dilatation of the ascending aorta measuring 4.50 cm. Venous The inferior vena cava is mildly dilated and collapses less than 50% with inspiration. Pericardium/Pleural There is no evidence of pericardial effusion. Prior Study Comparison Changes noted compared to prior study dated: 11/17/2023. LV cavity is dilated. LV ejection fraction has marginally reduced. Aortic regurgitation appears to be moderate. Measurements 2D Linear Measurements IVSd: 0.97 0.6-0.9/0.6-1.0 cm LVIDd: 6.24 3.9-5.3/4.2-5.9 cm LVIDd Index: 3.67 2.4-3.2/2.2-3.1 cm/m2 LVIDs: 5.02 2.0-3.6 cm LVPWd: 0.82 0.7-1.1 cm LA Diam: 4.40 2.7-3.8/3.0-4.0 cm LAIDs Index: 2.59 1.5-2.3 cm/m2 LV Mass: 285.20 67-162/88-224 g LV Mass Index: 167.76 43-95/49-115 g/m2 LVOT Diam: 2.40 3.0+(-)1.3 cm 2D Systolic Function EF 4C: 50.50 >55% Mitral Valve MV Pk E: 0.92 MV PK A: 0.26 MV Decel Time: 118.00 E/A: 3.50 E'Lateral: 7.07 E'Medial: 4.03 E/E' Med: 22.80 E/E' Lat: 13.00 PHT: 35.00 MVA PHT: 6.29 Decel [place]: 7.78 Aortic Valve AoV Pk Alonzo: 1.59 AoV Mn Alonzo: 0.95 AoV VTI: 0.33 AoV Pk Grad: 10.00 Aov Mn Grad: 4.00 CITLALLI Cont.VTI: 3.08 AI Pk Alonzo: 4.09 AI VTI: 2.62 AI [place]: 2.48 AI Alias Alonzo: 0.39 AI RV - PISA: 55.00 ERO - PISA: 21.00 LVOT LVOT Pk Alonzo: 1.02 LVOT Mn Alonzo: 0.69 LVOT VTI: 0.23 LVOT Pk Grad: 4.00 LVOT Mn Grad: 2.00 LVOT Diam: 2.40 LVOT Area: 4.52 Diastolic Function MV Pk E: 0.92 MV Pk A: 0.26 E/A: 3.50 E'Medial: 4.03 E/E' Med: 22.80 E' Laterial: 7.07 E/E' Lat: 13.00 Right Ventricle TAPSE (mm): 25.40 TVS' Alonzo: 16.90 Tricuspid Valve TR Pk Alonzo: 3.30 TR Pk Grad: 44.00 RA Press: 8.00 RVSP: 52.00 Great Vessels Aorta Sinus of Valsalva: 3.49 2.0-3.5 cm Ao Asc: 4.50 2.1-3.4 cm Ao Arch: 2.90 Updated in Other Vendor System with Status of Final Thierno Navarro MD electronically signed on 09/11/2025 4:53:06 PM with status of Final
--- OUTSIDE RECORDS SUMMARY | 2025-09-10 14:20 | XMS_ITS | Patient Health Record ---
Author Organization [facility] Address [address] [place] [address] Care Team Providers Care Comb Winder Name Role Phone Jenniffer Justice Primary Care Provider Unavailab Herman Black Unavailable [phone] Reason For Referral No Information Plan Of Treatment No Information Insurance Providers Payer Name Payer Address Payer Phone Subscriber Number Group Number Insured Name Patient Relationship to Insured Coverage Start Date Coverage End Date [facility] [address] [place] [phone] [id number] [place] Self - patient is the insured
== END ==
LOC: HO.CARD 12:29
PROVIDERS: PCP Internal Medicine; Visit Provider Internal Medicine Cardiovascular Disease
DX: I71.21 Aneurysm of the ascending aorta, without rupture (principal)
CPT/HCPCS: 93306

== ENCOUNTER → 2025-09-10 12:32 | Outpatient (BNV) | payer MEDICARE, SELFPAY | PROVIDERS: PCP Internal Medicine; Visit Provider Internal Medicine Cardiovascular Disease | DX: I51.7 Cardiomegaly (principal); I34.0 Nonrheumatic mitral (valve) insufficiency; I35.1 Nonrheumatic aortic (valve) insufficiency; I71.21 Aneurysm of the ascending aorta, without rupture | CPT/HCPCS: 93306 ==